=== PATIENT | male | born 1955 | race Caucasian/White ===

== ENCOUNTER 2016-11-03 07:10 | Day surgery (SDC) | payer OTHER ==
[~2016-11-03] VITALS: Ht 167.6 cm; Wt 63.8 kg
[~2016-11-03 07:10] MED LIST: AMLODIPINE BESY10 MG PO; CLOPIDOGREL75 MG PO; LIPITOR80 MG PO; LISINOPRIL10 MG PO; PRAZOSIN HCL1 MG PO; VITAMIN D-31000 UNIT PO
--- NOTE | 2016-11-03 08:31 | NUR ---
PATIENT SPEAKS VERY LITTLE TRISTANIAN. LANGUAGE LINE OFFERED AND DECLINED. DAUGHTER FELT COMFORTABLE WITH INTERPERTATING FOR PATIENT. HE AGREED. PREOP NURSE HAD CALLED RE: MEDICAL HISTORY AND TALKED TO THE DAUGHTER. DAUGHTER AND PATIENT AGREE THAT MD HAD EXPLAINED THE SURGERY VERY WELL IN THE OFFICE. THIS IS 2ND HERNIA SURGERY. PREOP INSTRUCTIONS GIVEN TO PATIENT AND DAUGHTER, THRU THE DAUGHTER. PATIENT AND DAUGHTER VERBALIZE UNDERSTNDING. CONSENT CONFIRMED. ABDOMEN MARKED BY THE DAUGHTER. SCDs ON. TYLENOL STARTED. KB
[2016-11-03] MEDS ORDERED: HYCET1 ML PO (08:50)
--- NOTE | 2016-11-03 08:52 | Provider's Discharge Care Plan ---
Problem, Goal, Plan Problem List 1. Status post laparoscopic hernia repair Goals: Improve disease control, Therapeutic intervention Instructions: Follow up as directed, [facility]
--- NOTE | 2016-11-03 08:52 | Provider's Discharge Care Plan ---
Problem, Goal, Plan Problem List 1. Status post laparoscopic hernia repair Goals: Improve disease control, Therapeutic intervention Instructions: Follow up as directed, Take meds as directed, [facility]
--- NOTE | 2016-11-03 12:10 | NUR ---
PT RECEIVED TO PACU SEDATED AND PAINFUL. RATED PAIN INITIALLY 8/10 AND DESCRIBED "I HAVE PAIN IN MY STOMACH". DENIES NAUSEA. MEDICATED WITH FENTANYL IV, TORADOL IM AND DILAUDID IV WITH PAIN NOW RATED 4/10 AND TOLERABLE. REQUIRES FREQUENT REMINDERS TO DEEP BREATHE AND COUGH. BREATH SOUNDS CLEAR TO AUCSULTATION. DAUGHTER AT BEDSIDE IN PACU TO HELP WITH COMMUNICATION.
--- NOTE | 2016-11-03 12:23 | NUR ---
PT REMAINS COMFORTABLE WITH PAIN LEVEL DESCRIBED OK. RESTING WHEN NOT DISTURBED. FACE TENT WITH HUMIDIFIED O2 FOR SORE THROAT. WARM BLANKETS FOR COMFORT.
--- NOTE | 2016-11-03 12:48 | NUR ---
PATIENT RETURNS TO THE FLOOR SLEEPY, BUT AROUSABLE. VSS. ICE CHIPS OFFERED. KB
--- NOTE | 2016-11-03 12:59 | NUR ---
SCROTAL SUPPORT PLACED IN OR AND ICE TO RIGHT GROIN IN PACU.
--- NOTE | 2016-11-03 13:16 | NUR ---
PATIENT CONTINUES TO BE RESTING COMFORTABLY. MIST MASK ON. VSS. FAMILY IN ROOM. KB
--- NOTE | 2016-11-03 13:34 | NUR ---
PATIENT UP TO BR. UNABLE TO VOID. SITTING IN THE CHAIR. PO OFFERED. FAMILY AT HIS SIDE. KB
--- NOTE | 2016-11-03 14:29 | NUR ---
UP TO BR AGAIN. UNABLE TO VOID. COMTINUES TO BE SLEEPY. DENIES PAIN. TOLERATING WATER. SITTING IN CHAIR. KB
--- NOTE | 2016-11-03 15:26 | NUR ---
BLADDER SCANNED FOR 782cc OF URINE, PATIENT COMPLAINS OF DISCOMFORT. STRAIGHT CATHED FOR APPROX 800 CLEAR YELLOW URINE. PATIENT STATES RELIEF. AMBULATED IN THE CHAMBERLAIN WITHOUT DIFFICULTY. SCROTAL SUPPORT ON. ICE TO GROIN. TOLERATING SMALL AMOUNT OF PO. INSTRUCTED ON I.S. RETURN DEMONSTRATION. DISCHARGE INSTRUCTIONS GIVEN TO PATIENT. DAUGHTER WHO IS CAREGIVER, VERBALIZES UNDERSTANDING. INSTRUCTED DAUGHTER TO BRING HIM BACK TO HOSPITAL IF HE HAS NOT URINATED BY 9:00PM. CHECK IN WITH THE MUSIC CATALOGUER TO ARRANGE BLANTON CATHETER THEN WILL FOLLOW UP WITH MD IN MORNING. KB
--- NOTE | 2016-11-03 15:53 | NUR ---
NOTIFIED MILK COLLECTOR OF PLAN. KB
--- NOTE | 2016-11-03 20:09 | OPERATIVE REPORT ---
DATE OF SURGERY: 11/03/2016 SURGEON: Richard Maldonado III, MD BISQUE WARE DIPPER: None. PREOPERATIVE DIAGNOSIS: 1. Right inguinal hernia POSTOPERATIVE DIAGNOSIS: 1. Right indirect inguinal hernia (pantaloon) PROCEDURE PERFORMED: 1. Laparoscopic repair of right indirect inguinal hernia with 15 x 9 cm ProGrip mesh (transabdominal preperitoneal repair) ANESTHESIA: General endotracheal. COMPLICATIONS: There were no intraoperative or anesthetic complications. INDICATIONS: The patient is a 61-year-old male patient with 1-year history of progressively enlarging right groin bulge, was noted to have a large reducible right inguinal hernia, the hernia extending down into the scrotum. SURGICAL FINDINGS: The patient was noted to have a pantaloon hernia. The indirect portion of it contained considerable amount of small bowel extending down into the scrotum. SURGICAL TECHNIQUE: The patient brought to the operating room, placed in the dorsal supine position where he underwent general endotracheal anesthesia by the anesthesiology department. After proper anesthesia had taken effect, patient's abdomen and bilateral groins were prepped using Betadine and draped in a sterile fashion. An infraumbilical incision made, carried down through skin, subcutaneous tissue. A Veress needle was inserted through this site into the abdominal cavity and after ascertaining its appropriate position with suction irrigation, a pneumoperitoneum obtained using CO2 insufflation to approximately 14-15 mmHg pressure. Once this pressure was reached, the Veress needle was removed, replaced with a 10 mm trocar. The trocar removed leaving the sleeve behind, through which a laparoscopic video camera was introduced into the abdominal cavity. Under direct visualization, a separate 10 mm trocar was placed in the right lower quadrant, a separate 5 mm trocar was placed in the left lower quadrant. Each entered the abdominal cavity under direct visualization. Trocars removed leaving the sleeves behind, through which laparoscopic instrumentation was introduced into abdominal cavity. The peritoneum overlying the hernia was incised using electrocautery kelli. This incision was carried out medially to the lateral umbilical ligament and out laterally and inferior to the anterior superior iliac crest spine. It was at this point, we mobilized the inferior peritoneal flap using a combination of blunt dissection and electrocautery. In the process, very carefully and time consuming we were able to reduce the hernia and skeletonize it off the cord. The cord and the vas were all identified and preserved. The Shiv's ligament was identified as well. The pantaloon hernia was also reduced during the skeletonization of the cord. A piece of mesh was then selected, measuring approximately 15 x 9 cm. It was placed in the preperitoneal space to avoid shifting because of large size of the internal ring, it was decided fixate the mesh using the AbsorbaTack. The AbsorbaTack was used to tack the mesh into position including pubic tubercle and Shiv ligament, the undersurface of the transversalis. Once mesh was in position, the inferior peritoneum was raised up to the upper portion of peritoneum, thus reperitonealizing the mesh and secured using the AbsorbaTack as well. Hemostasis assured. The pneumoperitoneum was released and all trocars were removed from the abdominal cavity. All trocar sites approximated using 4-0 subdermal Polysorb and Steri-Strips. A sterile pressure occlusive dressing was placed over each site. The patient tolerated procedure well, was extubated, transferred to the recovery room in stable condition.
[2017-02-10] MEDS ORDERED: HYCET1 ML PO (10:31)
== END 2016-11-03 15:51 | disposition home or self-care (01) ==
LOC: OR SRH 07:10 → SCU SRH 07:21 → OR SRH 09:00
PROVIDERS: Specialist
PROC: 0YU54JZ Supplement Right Inguinal Region with Synthetic Substitute, Percutaneous Endoscopic Approach (ICD-10-PCS; principal; 2016-11-03 09:00)
DX: K40.90 Unilateral inguinal hernia, without obstruction or gangrene, not specified as recurrent (principal); I10 Essential (primary) hypertension
CPT/HCPCS: 29240; 50002; 60001; 70002; 80102; 80212; 80248; 80445; 81642; 82073; 82669; 83125; 83432; 83587; 83710; 83711; 83919; 83982; 84038; 84322; 85309; 85420; 85447; 90047; 90074; 95059

== ENCOUNTER 2016-11-03 21:26 | Emergency (ER) | payer OTHER ==
[~2016-11-03 21:26] MED LIST changes: +HYCET1 ML PO
--- NOTE | 2016-11-03 22:35 | ED NURSING NOTES ---
Clinical Report - Nurses [facility] [address] [place] [address] 11/03/2016 21:27 Patient: JUHI MOYA TRIAGE Triage time 2140. Acuity: LEVEL 2. Chief Complaint: URINARY RETENTION. --21:48 Marco A Moseley R.N. 21:41 11/03/16. BP: 129/84. HR: 110. RR: 16. O2 saturation: 98%. Temp: 97.5 F. Pain level now 0/10. --21:48 Marco A Moseley R.N. Weight: 63.5 kg stated. Height/Length: 65 inches Per Patient. BMI: 23.3. --21:49 Marco A Moseley R.N. Medications HydrOXYzine HCl Oral. --21:44 Marco A Moseley R.N. Atenolol Oral. --21:44 Marco A Moseley R.N. Clopidogrel Bisulfate Oral. --21:44 Marco A Moseley R.N. Cetirizine HCl Oral. --21:44 Marco A Moseley R.N. Hydrochlorothiazide Oral. --21:45 Marco A Moseley R.N. Allergies No Known Drug Allergy. --21:45 Marco A Moseley R.N. History Arrived by private vehicle. Historian: patient and family. Accompanied by family. This started today. ( PT D/C from [facility] s/p hernia repair. has not urinated since surgery.). Treatment WIRER MAINTENANCE: None. SOCIAL HX: No infectious disease exposure. FALL RISK ASSESSMENT: Fall risk assessment completed. No fall risk identified. NUTRITIONAL RISK ASSESSMENT: The nutritional risk assessment revealed no deficiencies. FUNCTIONAL ASSESSMENT: Functional assessment: no impairments noted. LEARNING NEEDS ASSESSMENT: The learning needs assessment revealed no barriers. SKIN INTEGRITY ASSESSMENT: Skin integrity risk assessment completed. No skin integrity risk identified. --21:48 Marco A Moseley R.N. PROBLEMS: Hypertension. --21:46 Marco A Moseley R.N. ADDITIONAL SURGERIES: Hernia Repair. --21:46 Marco A Moseley R.N. Interventions ID band on patient. --21:48 Marco A Moseley R.N. PHYSICAL ASSESSMENT GENERAL / NEURO / PSYCH: Alert. Oriented X 4. Appears in no acute distress. HEENT: Mucous membranes are pink. RESPIRATORY: Respirations not labored. Breath sounds within normal limits. CVS: Capillary refill less than 2 seconds. GI / : Abdomen soft. No genital lesions noted. SKIN: Skin is warm and dry. --21:48 Marco A Moseley R.N. NURSING PROGRESS NOTES Head of bed elevated. Reassurance given. Patient identifiers checked. Call light placed in reach. Bed placed in lowest position. Brakes of bed on. --21:49 Marco A Moseley R.N. 16 fr nguyen catheter placed. Reason for indwelling catheter: retention. During procedure hand hygiene observed and sterile equipment and aseptic technique used. Return of 550 mL yellow-colored clear urine; attached to bedside drainage bag positioned below the bladder and secured with stabilization device. ( Bladder scan 515mls). --22:31 Marco A Moseley R.N. DISPOSITION / DISCHARGE Departure time: 2250. Ability to learn limited by language barrier. Discharge instructions provided and reviewed with the patient and family. Reviewed warnings. Treatments reviewed. Activity restrictions reviewed. Work note given. Written instructions provided in Nicaraguan. The patient was discharged home and accompanied by family. He left the Emergency Department ambulatory and via private vehicle. Family member driving. --22:53 Marco A Moseley R.N. 22:52 11/03/16. BP: 124/88. HR: 88. RR: 18. O2 saturation: 98%. Temp: 98 F. Pain level now 0/10. --22:53 Marco A Moseley R.N. Locked/Released at 11/03/2016 22:53 by Marco A Moseley R.N.
--- NOTE | 2016-11-03 22:35 | ED ORDER SUMMARY ---
..... Patient: JUHI MOYA OrderSheet [facility] VisitID: [id number] [address] [place] [address] 61y, M Registration Date/Time: 11/03/2016 ORDER SHEET Weight: 63.5 kg (stated) Allergies: No Known Drug Allergy GENERAL ORDERS: Bladder Scan (21:53 11/03/2016 Jennifer PONCE) (22:25 Leon Crawford) MEDICATION ORDERS: IV FLUIDS: ORDER SHEET NOTES: [Electronically signed by Marco A Moseley R.N. (22:53 11/03/2016)] [Electronically signed by Jorje Rangel MD (20:56 11/04/2016)] [Electronically locked/signed by Marco A Moseley R.N. (22:53 11/03/2016)]
--- NOTE | 2016-11-03 22:35 | ED ORDER SUMMARY ---
..... Patient: JUHI MOYA OrderSheet [facility] VisitID: [id number] [address] [place] [place] [address] 61y, M Registration Date/Time: 11/03/2016 ORDER SHEET Weight: 63.5 kg (stated) Allergies: No Known Drug Allergy GENERAL ORDERS: Bladder Scan (21:53 11/03/2016 Jennifer PONCE) (22:25 Leon Crawford) MEDICATION ORDERS: IV FLUIDS: ORDER SHEET NOTES: [Electronically signed by Marco A Moseley R.N. (22:53 11/03/2016)] [Electronically signed by Jorje Rangel MD (20:56 11/04/2016)] [Electronically locked/signed by Marco A Moseley R.N. (22:53 11/03/2016)]
--- NOTE | 2016-11-03 22:35 | ED NURSING NOTES ---
Clinical Report - Nurses [facility] [address] [place] [address] 11/03/2016 21:27 Patient: JUHI MOYA TRIAGE Triage time 2140. Acuity: LEVEL 2. Chief Complaint: URINARY RETENTION. --21:48 Marco A Moseley R.N. 21:41 11/03/16. BP: 129/84. HR: 110. RR: 16. O2 saturation: 98%. Temp: 97.5 F. Pain level now 0/10. --21:48 Marco A Moseley R.N. Weight: 63.5 kg stated. Height/Length: 65 inches Per Patient. BMI: 23.3. --21:49 Marco A Moseley R.N. Medications HydrOXYzine HCl Oral. --21:44 Marco A Moseley R.N. Atenolol Oral. --21:44 Marco A Moseley R.N. Clopidogrel Bisulfate Oral. --21:44 Marco A Moseley R.N. Cetirizine HCl Oral. --21:44 Marco A Moseley R.N. Hydrochlorothiazide Oral. --21:45 Marco A Moseley R.N. Allergies No Known Drug Allergy. --21:45 Marco A Moseley R.N. History Arrived by private vehicle. Historian: patient and family. Accompanied by family. This started today. ( PT D/C from [facility] s/p hernia repair. has not urinated since surgery.). Treatment MAINFRAME PROGRAMMER ANALYST: None. SOCIAL HX: No infectious disease exposure. FALL RISK ASSESSMENT: Fall risk assessment completed. No fall risk identified. NUTRITIONAL RISK ASSESSMENT: The nutritional risk assessment revealed no deficiencies. FUNCTIONAL ASSESSMENT: Functional assessment: no impairments noted. LEARNING NEEDS ASSESSMENT: The learning needs assessment revealed no barriers. SKIN INTEGRITY ASSESSMENT: Skin integrity risk assessment completed. No skin integrity risk identified. --21:48 Marco A Moseley R.N. PROBLEMS: Hypertension. --21:46 Marco A Moseley R.N. ADDITIONAL SURGERIES: Hernia Repair. --21:46 Marco A Moseley R.N. Interventions ID band on patient. --21:48 Marco A Moseley R.N. PHYSICAL ASSESSMENT GENERAL / NEURO / PSYCH: Alert. Oriented X 4. Appears in no acute distress. HEENT: Mucous membranes are pink. RESPIRATORY: Respirations not labored. Breath sounds within normal limits. CVS: Capillary refill less than 2 seconds. GI / : Abdomen soft. No genital lesions noted. SKIN: Skin is warm and dry. --21:48 Marco A Moseley R.N. NURSING PROGRESS NOTES Head of bed elevated. Reassurance given. Patient identifiers checked. Call light placed in reach. Bed placed in lowest position. Brakes of bed on. --21:49 Marco A Moseley R.N. 16 fr nguyen catheter placed. Reason for indwelling catheter: retention. During procedure hand hygiene observed and sterile equipment and aseptic technique used. Return of 550 mL yellow-colored clear urine; attached to bedside drainage bag positioned below the bladder and secured with stabilization device. ( Bladder scan 515mls). --22:31 Marco A Moseley R.N. DISPOSITION / DISCHARGE Departure time: 2250. Ability to learn limited by language barrier. Discharge instructions provided and reviewed with the patient and family. Reviewed warnings. Treatments reviewed. Activity restrictions reviewed. Work note given. Written instructions provided in Wallisian. The patient was discharged home and accompanied by family. He left the Emergency Department ambulatory and via private vehicle. Family member driving. --22:53 Marco A Moseley R.N. 22:52 11/03/16. BP: 124/88. HR: 88. RR: 18. O2 saturation: 98%. Temp: 98 F. Pain level now 0/10. --22:53 Marco A Moseley R.N. Locked/Released at 11/03/2016 22:53 by Marco A Moseley R.N.
--- NOTE | 2016-11-03 22:35 | ED CLINICAL REPORT ---
Clinical Report - Physicians/Mid Levels Located Within [facility] [address] [place] [address] 11/03/2016 21:27 Patient: JUHI MOYA Time Seen: 21:49 Nov 03 2016. Arrived- By private vehicle. Historian- patient. CPT: ER phys charges level 4 (#[id number]). HISTORY OF PRESENT ILLNESS Chief Complaint: URINARY RETENTION. (( PT D/C from [facility] s/p hernia repair. has not urinated since surgery.). Surgery was this morning. Had initial problems and was cathed before discharge and told to return if problems later.). Is still present. The problem is described as moderate. The patient has been unable to void. Sexual history is noncontributory. Similar symptoms previously: None. Recent medical care: The patient was seen recently at this facility and hospitalized. Evaluation/treatment- right inguinal hernia repair. REVIEW OF SYSTEMS No fever, chills, flank pain, hematuria or vomiting. No diarrhea, black stools, sore throat, chest pain or difficulty breathing. No cough, joint pain, skin rash or back pain. He has had abdominal pain. All systems otherwise negative, except as recorded above. PAST HISTORY Hypertension. ( Hernia Repair today: 11-03-16). ADDITIONAL NOTES The nursing notes have been reviewed. PHYSICAL EXAM Vital Signs: 11/03/2016 21:41 BP: 129/84. HR: 110. RR: 16. O2 saturation: 98%. Temp: 97.5 F. Appearance: Alert. Patient in mild distress. ENT: Pharynx normal. CVS: Heart sounds normal. Respiratory: No respiratory distress. Abdomen: Soft. Mild tenderness in the lower abdomen. (Right abdominal wound.). Back: Normal external inspection. No CVA tenderness. Skin: Skin warm. Normal skin color. No rash. Neuro: Oriented X 3. No motor deficit. No sensory deficit. PROGRESS AND PROCEDURES Course of Care: Bladder scan with 500cc. Nguyen placed with marked relief of symptoms. Patient/family counseled. Disposition: Discharged. Condition: stable and improved. CLINICAL IMPRESSION Drug induced urinary retention with enlarged prostate. Acute suprapubic abdominal pain. Post-op urinary retention : nguyen placed. INSTRUCTIONS No strenuous activity. Rest. Drink plenty of fluids. (Leave nguyen in until your Doctor removes it.). Warnings: Further evaluation is necessary. GENERAL WARNINGS: Return or contact your physician immediately if your condition worsens or changes unexpectedly, if not improving as expected, or if other problems arise. Your Current Medications: CONTINUE TAKING THE FOLLOWING MEDICATIONS: Atenolol Oral. Cetirizine HCl Oral. Clopidogrel Bisulfate Oral. Hydrochlorothiazide Oral. HydrOXYzine HCl Oral. Follow-up: Follow up with your doctor Monday in four days. Call for the next available appointment. Understanding of the discharge instructions verbalized by patient and family. Discharge instructions reviewed with and understanding was verbalized by spouse. (Electronically signed by Jorje Rangel MD 11/04/2016 20:56)
--- NOTE | 2016-11-03 22:35 | ED CLINICAL REPORT ---
Clinical Report - Physicians/Mid Levels [facility] [address] [place] [address] 11/03/2016 21:27 Patient: JUHI MOYA Time Seen: 21:49 Nov 03 2016. Arrived- By private vehicle. Historian- patient. CPT: ER phys charges level 4 (#[id number]). HISTORY OF PRESENT ILLNESS Chief Complaint: URINARY RETENTION. (( PT D/C from [facility] s/p hernia repair. has not urinated since surgery.). Surgery was this morning. Had initial problems and was cathed before discharge and told to return if problems later.). Is still present. The problem is described as moderate. The patient has been unable to void. Sexual history is noncontributory. Similar symptoms previously: None. Recent medical care: The patient was seen recently at this facility and hospitalized. Evaluation/treatment- right inguinal hernia repair. REVIEW OF SYSTEMS No fever, chills, flank pain, hematuria or vomiting. No diarrhea, black stools, sore throat, chest pain or difficulty breathing. No cough, joint pain, skin rash or back pain. He has had abdominal pain. All systems otherwise negative, except as recorded above. PAST HISTORY Hypertension. ( Hernia Repair today: 11-03-16). ADDITIONAL NOTES The nursing notes have been reviewed. PHYSICAL EXAM Vital Signs: 11/03/2016 21:41 BP: 129/84. HR: 110. RR: 16. O2 saturation: 98%. Temp: 97.5 F. Appearance: Alert. Patient in mild distress. ENT: Pharynx normal. CVS: Heart sounds normal. Respiratory: No respiratory distress. Abdomen: Soft. Mild tenderness in the lower abdomen. (Right abdominal wound.). Back: Normal external inspection. No CVA tenderness. Skin: Skin warm. Normal skin color. No rash. Neuro: Oriented X 3. No motor deficit. No sensory deficit. PROGRESS AND PROCEDURES Course of Care: Bladder scan with 500cc. Nguyen placed with marked relief of symptoms. Patient/family counseled. Disposition: Discharged. Condition: stable and improved. CLINICAL IMPRESSION Drug induced urinary retention with enlarged prostate. Acute suprapubic abdominal pain. Post-op urinary retention : nguyen placed. INSTRUCTIONS No strenuous activity. Rest. Drink plenty of fluids. (Leave nguyen in until your Doctor removes it.). Warnings: Further evaluation is necessary. GENERAL WARNINGS: Return or contact your physician immediately if your condition worsens or changes unexpectedly, if not improving as expected, or if other problems arise. Your Current Medications: CONTINUE TAKING THE FOLLOWING MEDICATIONS: Atenolol Oral. Cetirizine HCl Oral. Clopidogrel Bisulfate Oral. Hydrochlorothiazide Oral. HydrOXYzine HCl Oral. Follow-up: Follow up with your doctor Monday in four days. Call for the next available appointment. Understanding of the discharge instructions verbalized by patient and family. Discharge instructions reviewed with and understanding was verbalized by spouse. (Electronically signed by Jorje Rangel MD 11/04/2016 20:56)
--- NOTE | 2016-11-04 20:56 | ED MED RECONCILIATION SUMMARY ---
Patient: JUHI MOYA Medication Reconciliation Report [facility] VisitID: [id number] [address] [place] [address] 61y, M Registration Date/Time: 11/03/2016 Weight: 63.5 kg Height/Length: 65 in. BMI: 23.3 ALLERGIES: No Known Drug Allergy The patient's Home Medications are listed below: CONTINUE TAKING THE FOLLOWING MEDICATIONS: Atenolol Oral Cetirizine HCl Oral Clopidogrel Bisulfate Oral Hydrochlorothiazide Oral HydrOXYzine HCl Oral The source(s) of the original Home Medication information: Not obtained. The following Medications were given to the patient in the Emergency Department: None. The following Medications were prescribed to the patient: None.
--- NOTE | 2016-11-04 20:56 | ED MAR SUMMARY ---
..... Medication Administration Record [facility] [address], [place] [id number] Patient: JUHI MOYA Visit ID: [id number] 61y, M Weight: 63.5 kg Height/Length: 65 in BMI: 23.3 ALLERGIES: No Known Drug Allergy
--- NOTE | 2016-11-04 20:56 | ED MED RECONCILIATION SUMMARY ---
Patient: JUHI MOYA Medication Reconciliation Report [facility] VisitID: [id number] [address] [place] [address] 61y, M Registration Date/Time: 11/03/2016 Weight: 63.5 kg Height/Length: 65 in. BMI: 23.3 ALLERGIES: No Known Drug Allergy The patient's Home Medications are listed below: CONTINUE TAKING THE FOLLOWING MEDICATIONS: Atenolol Oral Cetirizine HCl Oral Clopidogrel Bisulfate Oral Hydrochlorothiazide Oral HydrOXYzine HCl Oral The source(s) of the original Home Medication information: Not obtained. The following Medications were given to the patient in the Emergency Department: None. The following Medications were prescribed to the patient: None.
--- NOTE | 2016-11-04 20:56 | ED MAR SUMMARY ---
..... Medication Administration Record [facility] [address] [place], [place] [id number] Patient: JUHI MOYA Visit ID: [id number] 61y, M Weight: 63.5 kg Height/Length: 65 in BMI: 23.3 ALLERGIES: No Known Drug Allergy
--- NOTE | 2016-11-04 20:56 | ED DISCHARGE INSTRUCTIONS ---
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 Acute suprapubic abdominal pain. Post-op urinary retention : nguyen placed. INSTRUCTIONS No strenuous activity. Rest. Drink plenty of fluids. (Leave nguyen in until your Doctor removes it.). Warnings: Further evaluation is necessary. GENERAL WARNINGS: Return or contact your physician immediately if your condition worsens or changes unexpectedly, if not improving as expected, or if other problems arise. Your Current Medications: CONTINUE TAKING THE FOLLOWING MEDICATIONS: Atenolol Oral. Cetirizine HCl Oral. Clopidogrel Bisulfate Oral. Hydrochlorothiazide Oral. HydrOXYzine HCl Oral. Follow-up: Follow up with your doctor Monday in four days. Call for the next available appointment. Understanding of the discharge instructions verbalized by patient and family. Discharge instructions reviewed with and understanding was verbalized by spouse. ADDITIONAL INFORMATION Urinary Retention (Male) Urinary retention means that you are unable to pass urine, even though your bladder is full. The most common cause for this in males is a blockage of the bladder outlet by an enlarged prostate gland or a bladder infection. Certain medicines can also cause this problem. This condition is treated by insertion of a catheter into the bladder to drain the urine. This provides immediate relief. The catheter may need to remain in place for a few days to prevent a recurrence. The catheter has a balloon on the tip which was inflated after insertion. This prevents the catheter from falling out. Home Care: If an antibiotic was prescribed to treat a bladder infection, be sure to take it until finished, even if you are feeling better before it is all gone. If a catheter was left in place, it is important to keep bacteria from getting into the collection bag. Do not disconnect the catheter from the collection bag. Use a leg band to secure the drainage tube, so it does not pull on the catheter. Drain the collection bag when it becomes full using the drain spout at the bottom of the bag. Do not try to pull or remove your catheter. This will injure your urethra. It must be removed by a doctor or nurse. Follow Up with your doctor as advised. If a catheter was left in place, it can usually be removed within 3-7 days. Some conditions require that the catheter remains in longer. Follow up with your doctor to determine the right time for you. Get Prompt Medical Attention if any of the following occur: Fever of 100.4F (38C) or higher, or as directed by your healthcare provider Bladder or lower abdominal pain or fullness Abdominal swelling, nausea, vomiting or back pain Blood or urine leakage around the catheter Bloody urine coming from the catheter (if a new symptom) Weakness, dizziness or fainting Confusion or change in usual level of alertness If a catheter was left in place, return if: Catheter falls out Catheter stops draining for 6 hours You have been given the following additional information: Urinary Retention, Male No strenuous activity. Rest. (Electronically signed by Jorje Rangel MD 11/04/2016 20:56)
[2017-02-10] MEDS ORDERED: HYCET1 ML PO (10:31)
== END 2016-11-03 22:50 | disposition home or self-care (01) ==
LOC: ED SRH 21:26
DX: N40.1 Benign prostatic hyperplasia with lower urinary tract symptoms (principal); R33.0 Drug induced retention of urine; T50.905A Adverse effect of unspecified drugs, medicaments and biological substances, initial encounter; R10.30 Lower abdominal pain, unspecified; I10 Essential (primary) hypertension; Z79.02 Long term (current) use of antithrombotics/antiplatelets; Z79.899 Other long term (current) drug therapy

== ENCOUNTER 2016-12-07 08:15 | Outpatient (CLI) | payer SELFPAY ==
--- NOTE | 2016-12-07 09:59 | DIAGNOSTIC IMAGING REPORT ---
PROCEDURE: US PELVIC LIMITED INDICATION: Right groin hematoma follow hernia repair 1 month ago, initial encounter. TECHNIQUE: Persaud scale and color Doppler ultrasound. COMPARISON: None. FINDINGS: There is a 9.4 x 7.6 x 7.3 cm heterogeneous non peristalsing right inguinal mass extending into the right scrotum most consistent with a hematoma although bowel is not entirely excluded. There is a moderate right hydrocele. Right testicle is displaced inferiorly with minimal vascular flow, measures 3 x 2.4 cm and demonstrates a hypoechoic area measuring 2.3 x 1.7 cm. IMPRESSION: 1. Large right inguinal heterogeneous mass without peristalsis, most consistent with a hematoma but bowel is not completely excluded. CT scan may be useful for further evaluation. 2. Minimal vascular flow to the right testicle with large hypoechoic area consistent with torsion and probable infarction 3. Results discussed with Dr. Maldonado
[2017-02-10] MEDS ORDERED: HYCET1 ML PO (10:31)
== END 2016-12-07 23:00 ==
LOC: US SRH 08:15
DX: K91.870 Postprocedural hematoma of a digestive system organ or structure following a digestive system procedure (principal)